=== PATIENT | female | born 1995 | race Caucasian/White ===

== ENCOUNTER → 2016-03-25 | Outpatient (CLI) | payer OTHER | LOC: COL.RAD 03-23 13:30 | DX: M25.511 Pain in right shoulder (principal) | CPT/HCPCS: A9585; Q9967 ==

== ENCOUNTER → 2016-05-30 | Outpatient (CLI) | payer OTHER | LOC: COL.RAD 13:00 | DX: S59.801A Other specified injuries of right elbow, initial encounter (principal) | CPT/HCPCS: A9585; Q9967 ==